=== PATIENT | male | born 1985 | race African-American/Black ===

== ENCOUNTER 2019-08-07 12:00 | Inpatient (IN) | payer MEDICARE, MEDICAID ==
[~2019-08-07] VITALS: Ht 182.9 cm; Wt 93.2 kg
[~2019-08-07 12:00] MED LIST: ALPR-340 PO; APIX5TAB PO; ASCO500 PO; BACL10TA PO; DOCU-275 PO; GABA-1216 PO; METO50 PO; MIRA50TA PO; MOM30 PO; ONDA-104 PO; OXYC-601 PO; POLY250020 PO; RINGERS SOLUTION,LACTATED 1,000 ML IV ONE; RIVA20TA PO; SENN1TAB86 PO
[2019-08-16] MEDS ORDERED: RINGERS SOLUTION,LACTATED 1,000 ML IV ONE ×2 (05:34→11:26)
[2019-08-16 06:42] LABS: BASOPHILS % (AUTO) 0.5 % (0.0-2.0); EOSINOPHILS % (AUTO) 4.8 % (1.0-6.0); HEMOGLOBIN 12.9 g/dL (13.5-17.5); LYMPHOCYTES # (AUTO) 2.6 K/uL (1.0-4.8); LYMPHOCYTES % (AUTO) 39.9 % (22.0-44.0); MEAN CORPUSCULAR HGB CONC 32.2 G/dL (31.0-37.0); MEAN CORPUSCULAR VOLUME 77 fL (80-100); MONOCYTES # (AUTO) 0.4 K/uL (0.1-1.0); MONOCYTES % (AUTO) 5.5 % (2.0-9.0); NEUTROPHILS # (AUTO) 3.2 K/uL (1.8-7.7); NEUTROPHILS % (AUTO) 49.3 % (40.0-70.0); PLATELET COUNT (AUTO) 310 K/uL (150-450); RED BLOOD CELL COUNT(AUTO) 5.17 MIL/uL (4.50-5.90); RED CELL DISTRIBUTION WIDTH 17.7 % (11.5-14.5)
[2019-08-16 06:48] LABS: ANION GAP 7 mmol/L (8-16); CALCIUM, TOTAL 9.2 mg/dL (8.8-10.5); CARBON DIOXIDE 29 mmol/L (22-29); CHLORIDE 103 mmol/L (98-107); CREATININE 0.62 mg/dL (0.60-1.30); GLOMERULAR FILTR. RATE CALC > 60 mL/min (>60); GLUCOSE,RANDOM 99 mg/dL (70-110); POTASSIUM 3.9 mmol/L (3.5-5.1); SODIUM SERUM 139 mmol/L (136-145); UREA NITROGEN, BLOOD 16 mg/dL (7-18)
[2019-08-16 06:55] LABS: INR 1.1 (0.9-1.1); PROTHROMBIN TIME 10.9 SEC (9.4-11.6)
[2019-08-16] MEDS ORDERED: BACITRACIN 50,000 UNITS/VIAL ONE (06:57)
[2019-08-16] MEDS ORDERED: SODIUM CL IRRIG SOLN BAG 0 ML IRRIG ONE (06:57)
[2019-08-16] MEDS ORDERED: ACETAMINOPHEN 1000 MG/ISO-OSM 100 ML IV ONE (07:02)
[2019-08-16] MEDS: ACETAMINOPHEN 1000 MG/ISO-OSM 100 ML IV SCH ×3 (07:10→18:11)
[2019-08-16] MEDS ORDERED: CLINDAMYCIN PHOS 150 MG/ML 4 ML VIAL ONE (07:14)
[2019-08-16] MEDS ORDERED: MERO1VIA22 IV (07:17)
[2019-08-16] MEDS ORDERED: HYDROmorphone 2 MG/ML SYRINGE IVP PRN (07:30)
[2019-08-16] MEDS ORDERED: MEPERIDINE-PF 25 MG/ML VIAL IVP PRN (07:30)
[2019-08-16] MEDS: OXYGEN THERAPY IH SCH (08:00)
[2019-08-16] MEDS ORDERED: LIDOCAINE 1%/EPI 1:200,000/PF 30 ML VIAL ONE ×2 (08:17)
[2019-08-16] MEDS ORDERED: FentaNYL CITRATE-PF 100 MCG/2 ML VIAL ONE ×2 (11:18→11:34)
[2019-08-16] MEDS: FentaNYL CITRATE-PF 100 MCG/2 ML VIAL IVP PRN ×4 (11:19→11:31)
[2019-08-16] MEDS ORDERED: ETOMIDATE 2 MG/ML 10 ML VIAL IVP ONE (12:00)
[2019-08-16] MEDS ORDERED: OxyCODONE HCL/ACETAMINOPHEN 10-325 MG TABLET PO SCH (12:00)
[2019-08-16] MEDS ORDERED: METOPROLOL TARTRATE 50 MG TABLET PO SCH (12:00)
[2019-08-16] MEDS ORDERED: ONDANSETRON HCL 4 MG TABLET PO SCH (12:00)
[2019-08-16] MEDS ORDERED: FentaNYL CITRATE-PF 100 MCG/2 ML VIAL IVP ONE (12:00)
[2019-08-16] MEDS ORDERED: SUCCINYLCHOLINE CHLORIDE 20 MG/ML 10 ML VIAL IVP ONE (12:00)
[2019-08-16] MEDS ORDERED: MIDAZOLAM HCL 2 MG/2 ML VIAL IVP ONE (12:00)
[2019-08-16] MEDS ORDERED: DEXAMETHASONE SOD PHOS 4 MG/ML VIAL IVP ONE (12:00)
[2019-08-16] MEDS ORDERED: PROPOFOL 1% 20 ML VIAL IVP ONE (12:00)
[2019-08-16] MEDS ORDERED: DOCUSATE SODIUM 100 MG CAPSULE PO PRN (12:00)
[2019-08-16] MEDS ORDERED: ONDANSETRON HCL 4 MG/2 ML VIAL IVP ONE (12:00)
[2019-08-16] MEDS ORDERED: SODIUM CHLORIDE 0.9% 500 ML IV ONE (12:51)
[2019-08-16] MEDS: ASCORBIC ACID 500 MG TABLET PO SCH ×2 (13:09→20:15)
[2019-08-16] MEDS: MAGNESIUM HYDROXIDE SUSPENSION 30 ML UDCUP PO SCH (13:10)
[2019-08-16 13:13] VITALS: BP 123/82
[2019-08-16] MEDS ORDERED: ACETAMINOPHEN 325 MG TABLET PO PRN (13:30)
[2019-08-16] MEDS ORDERED: ONDANSETRON HCL 4 MG/2 ML VIAL IVP PRN (13:30)
[2019-08-16] MEDS ORDERED: MAGNESIUM HYDROXIDE SUSPENSION 30 ML UDCUP PO PRN (13:30)
[2019-08-16] MEDS ORDERED: HydrALAZINE HCL 20 MG/ML VIAL IVP PRN (13:45)
[2019-08-16] MEDS: CeFAZolin 2 GM/DEXTROSE 50 ML IV SCH ×2 (15:36→23:27)
[2019-08-16] MEDS: HEPARIN SODIUM,PORCINE 5,000 UNITS/ML VIAL SQ SCH ×2 (16:52→23:26)
[2019-08-16] MEDS: HYDROmorphone 2 MG/ML SYRINGE IVP PRN ×2 (16:52→23:34)
[2019-08-16] MEDS: BACLOFEN 10 MG TABLET PO SCH ×2 (16:52→20:14)
[2019-08-16] MEDS: GABAPENTIN 100 MG CAPSULE PO SCH ×2 (16:52→20:14)
[2019-08-16] MEDS: OxyCODONE HCL/ACETAMINOPHEN 10-325 MG TABLET PO SCH (18:11)
[2019-08-16 19:14] LABS: APPEARANCE,URINE CLEAR (CLEAR); BILIRUBIN,URINE NEGATIVE (NEGATIVE); GLUCOSE, URINE (UA) NEGATIVE (NEGATIVE); KETONES,URINE NEGATIVE (NEGATIVE); LEUKOCYTE ESTERASE ,URINE SMALL (NEGATIVE); NITRATE,URINE NEGATIVE (NEGATIVE); OCCULT BLOOD,URINE NEGATIVE (NEGATIVE); PROTEIN,URINE NEGATIVE (NEGATIVE); UROBILINOGEN,URINE 0.2 mg/dL (<=1.0)
[2019-08-16 19:46] LABS: BACTERIA,URINE Rare /HPF (None Seen); RBC,URINE None Seen /HPF (0-2)
[2019-08-16 19:47] LABS: CALCIUM OXALATE CRYSTALS,UR Rare /LPF (None Seen); SQUAMOUS EPITHELIAL CELL,UR Rare /LPF (None Seen); YEAST,URINE Moderate /HPF (None Seen)
[2019-08-16 19:56] VITALS: BP 116/68
[2019-08-16] MEDS: DOCUSATE SODIUM 100 MG CAPSULE PO SCH (20:14)
[2019-08-16] MEDS: SENNA/DOCUSATE SODIUM 8.6-50 MG TABLET PO SCH (20:14)
[2019-08-16] MEDS: METOPROLOL TARTRATE 25 MG TABLET PO SCH (20:15)
[2019-08-16 23:30] VITALS: BP 118/74
[2019-08-17] MEDS: ACETAMINOPHEN 1000 MG/ISO-OSM 100 ML IV SCH (01:15)
[2019-08-17 05:00] VITALS: BP 103/57
[2019-08-17] MEDS: MORPHINE SULFATE 2 MG/ML SYRINGE IVP PRN ×3 (05:17→18:10)
[2019-08-17] MEDS: OxyCODONE HCL/ACETAMINOPHEN 10-325 MG TABLET PO SCH ×4 (07:22→20:46)
[2019-08-17] MEDS: OXYGEN THERAPY IH SCH ×2 (07:34→20:49)
[2019-08-17 07:54] VITALS: BP 118/62
[2019-08-17] MEDS: METOPROLOL TARTRATE 25 MG TABLET PO SCH ×2 (08:45→20:47)
[2019-08-17] MEDS: GABAPENTIN 100 MG CAPSULE PO SCH ×3 (08:45→20:48)
[2019-08-17] MEDS: ASCORBIC ACID 500 MG TABLET PO SCH ×2 (08:45→20:46)
[2019-08-17] MEDS: DOCUSATE SODIUM 100 MG CAPSULE PO SCH ×2 (08:45→20:47)
[2019-08-17] MEDS: MAGNESIUM HYDROXIDE SUSPENSION 30 ML UDCUP PO SCH (08:45)
[2019-08-17] MEDS: FAMOTIDINE 20 MG TABLET PO SCH (08:46)
[2019-08-17] MEDS: HEPARIN SODIUM,PORCINE 5,000 UNITS/ML VIAL SQ SCH ×2 (08:46→16:28)
[2019-08-17] MEDS: BACLOFEN 10 MG TABLET PO SCH ×3 (08:46→20:47)
[2019-08-17 08:49] LABS: BASOPHILS % (AUTO) 0.2 % (0.0-2.0); HEMATOCRIT 31.5 % (41-53); HEMOGLOBIN 10.5 g/dL (13.5-17.5); LYMPHOCYTES # (AUTO) 3.4 K/uL (1.0-4.8); LYMPHOCYTES % (AUTO) 37.5 % (22.0-44.0); MEAN CORPUSCULAR HEMOGLOBIN 25.8 pg (26.0-34.0); MEAN CORPUSCULAR HGB CONC 33.2 G/dL (31.0-37.0); MEAN CORPUSCULAR VOLUME 78 fL (80-100); MONOCYTES # (AUTO) 0.6 K/uL (0.1-1.0); MONOCYTES % (AUTO) 6.2 % (2.0-9.0); NEUTROPHILS % (AUTO) 55.1 % (40.0-70.0); PLATELET COUNT (AUTO) 255 K/uL (150-450); RED BLOOD CELL COUNT(AUTO) 4.07 MIL/uL (4.50-5.90); RED CELL DISTRIBUTION WIDTH 18.3 % (11.5-14.5)
[2019-08-17 09:09] LABS: ANION GAP 7 mmol/L (8-16); CALCIUM, TOTAL 8.6 mg/dL (8.8-10.5); CARBON DIOXIDE 29 mmol/L (22-29); CHLORIDE 104 mmol/L (98-107); CREATININE 0.32 mg/dL (0.60-1.30); GLOMERULAR FILTR. RATE CALC > 60 mL/min (>60); GLUCOSE,RANDOM 108 mg/dL (70-110); SODIUM SERUM 140 mmol/L (136-145); UREA NITROGEN, BLOOD 14 mg/dL (7-18)
[2019-08-17 11:17] VITALS: BP 99/61
[2019-08-17 15:30] VITALS: BP 100/59
[2019-08-17 19:26] VITALS: BP 127/78
[2019-08-17] MEDS: SENNA/DOCUSATE SODIUM 8.6-50 MG TABLET PO SCH (20:47)
[2019-08-17 23:55] VITALS: BP 104/56
[2019-08-18] MEDS: HEPARIN SODIUM,PORCINE 5,000 UNITS/ML VIAL SQ SCH ×3 (00:04→16:24)
[2019-08-18] MEDS: ALPRAZolam 0.5 MG TABLET PO PRN (00:07)
[2019-08-18] MEDS: HYDROmorphone 2 MG/ML SYRINGE IVP PRN ×2 (00:13→08:35)
[2019-08-18] MEDS: OxyCODONE HCL/ACETAMINOPHEN 10-325 MG TABLET PO SCH ×4 (02:45→17:52)
[2019-08-18] MEDS: MORPHINE SULFATE 2 MG/ML SYRINGE IVP PRN ×4 (03:22→22:52)
[2019-08-18 04:23] VITALS: BP 127/70
[2019-08-18 07:31] LABS: BASOPHILS % (AUTO) 0.4 % (0.0-2.0); EOSINOPHILS % (AUTO) 1.7 % (1.0-6.0); HEMATOCRIT 29.6 % (41-53); LYMPHOCYTES # (AUTO) 3.3 K/uL (1.0-4.8); LYMPHOCYTES % (AUTO) 34.1 % (22.0-44.0); MEAN CORPUSCULAR HEMOGLOBIN 26.2 pg (26.0-34.0); MEAN CORPUSCULAR HGB CONC 33.7 G/dL (31.0-37.0); MEAN CORPUSCULAR VOLUME 78 fL (80-100); MONOCYTES # (AUTO) 0.6 K/uL (0.1-1.0); MONOCYTES % (AUTO) 6.4 % (2.0-9.0); NEUTROPHILS # (AUTO) 5.5 K/uL (1.8-7.7); NEUTROPHILS % (AUTO) 57.4 % (40.0-70.0); PLATELET COUNT (AUTO) 252 K/uL (150-450); RED BLOOD CELL COUNT(AUTO) 3.82 MIL/uL (4.50-5.90); RED CELL DISTRIBUTION WIDTH 18.8 % (11.5-14.5)
[2019-08-18 07:38] LABS: ANION GAP 9 mmol/L (8-16); CALCIUM, TOTAL 8.7 mg/dL (8.8-10.5); CARBON DIOXIDE 26 mmol/L (22-29); CHLORIDE 100 mmol/L (98-107); CREATININE 0.56 mg/dL (0.60-1.30); GLOMERULAR FILTR. RATE CALC > 60 mL/min (>60); GLUCOSE,RANDOM 95 mg/dL (70-110); POTASSIUM 3.7 mmol/L (3.5-5.1); SODIUM SERUM 135 mmol/L (136-145); UREA NITROGEN, BLOOD 15 mg/dL (7-18)
[2019-08-18 07:58] VITALS: BP 102/54
[2019-08-18] MEDS: OXYGEN THERAPY IH SCH ×2 (08:00→20:47)
[2019-08-18] MEDS: DOCUSATE SODIUM 100 MG CAPSULE PO SCH ×2 (08:29→20:44)
[2019-08-18] MEDS: METOPROLOL TARTRATE 25 MG TABLET PO SCH ×2 (08:30→20:46)
[2019-08-18] MEDS: MAGNESIUM HYDROXIDE SUSPENSION 30 ML UDCUP PO SCH (08:30)
[2019-08-18] MEDS: BACLOFEN 10 MG TABLET PO SCH ×3 (08:30→20:44)
[2019-08-18] MEDS: GABAPENTIN 100 MG CAPSULE PO SCH ×3 (08:31→20:44)
[2019-08-18] MEDS: FAMOTIDINE 20 MG TABLET PO SCH (08:31)
[2019-08-18] MEDS: ASCORBIC ACID 500 MG TABLET PO SCH ×2 (08:31→20:44)
[2019-08-18] MEDS ORDERED: ALPR-340 PO (10:23)
[2019-08-18] MEDS ORDERED: HEPA500018 SQ (10:26)
[2019-08-18 11:30] VITALS: BP 124/61
[2019-08-18] MEDS ORDERED: MEROPENEM 1 GM in SODIUM CHLORIDE 0.9% 100 ML IV SCH (12:00)
[2019-08-18 15:07] VITALS: BP 109/62
[2019-08-18 20:30] VITALS: BP 105/60
[2019-08-18] MEDS: SENNA/DOCUSATE SODIUM 8.6-50 MG TABLET PO SCH (20:44)
[2019-08-19] VITALS (7 sets, daily range): BP systolic 95–127; BP diastolic 52–75
[2019-08-19] MEDS: OxyCODONE HCL/ACETAMINOPHEN 10-325 MG TABLET PO SCH ×5 (00:19→23:53)
[2019-08-19] MEDS: HEPARIN SODIUM,PORCINE 5,000 UNITS/ML VIAL SQ SCH ×4 (00:22→23:53)
[2019-08-19] MEDS: ALPRAZolam 0.5 MG TABLET PO PRN (01:50)
[2019-08-19] MEDS: MORPHINE SULFATE 2 MG/ML SYRINGE IVP PRN ×2 (05:16→10:52)
[2019-08-19] MEDS: FAMOTIDINE 20 MG TABLET PO SCH (07:59)
[2019-08-19] MEDS: METOPROLOL TARTRATE 25 MG TABLET PO SCH ×2 (07:59→20:57)
[2019-08-19] MEDS: DOCUSATE SODIUM 100 MG CAPSULE PO SCH ×2 (07:59→20:59)
[2019-08-19] MEDS: ASCORBIC ACID 500 MG TABLET PO SCH ×2 (07:59→20:59)
[2019-08-19] MEDS: BACLOFEN 10 MG TABLET PO SCH ×3 (07:59→20:57)
[2019-08-19] MEDS: GABAPENTIN 100 MG CAPSULE PO SCH ×3 (07:59→20:56)
[2019-08-19] MEDS: OXYGEN THERAPY IH SCH ×2 (08:00→20:59)
[2019-08-19] MEDS: MAGNESIUM HYDROXIDE SUSPENSION 30 ML UDCUP PO SCH (08:00)
[2019-08-19] MEDS: SENNA/DOCUSATE SODIUM 8.6-50 MG TABLET PO SCH (21:04)
[2019-08-19] MEDS: HYDROmorphone 2 MG/ML SYRINGE IVP PRN (22:16)
[2019-08-20] MEDS: ALPRAZolam 0.5 MG TABLET PO PRN ×2 (03:09→20:58)
[2019-08-20 04:30] VITALS: BP 107/62
[2019-08-20] MEDS: OxyCODONE HCL/ACETAMINOPHEN 10-325 MG TABLET PO SCH ×4 (06:23→23:07)
[2019-08-20 07:25] LABS: BASOPHILS % (AUTO) 0.5 % (0.0-2.0); EOSINOPHILS % (AUTO) 2.5 % (1.0-6.0); HEMATOCRIT 28.7 % (41-53); HEMOGLOBIN 9.6 g/dL (13.5-17.5); LYMPHOCYTES # (AUTO) 2.4 K/uL (1.0-4.8); LYMPHOCYTES % (AUTO) 25.3 % (22.0-44.0); MEAN CORPUSCULAR HEMOGLOBIN 25.7 pg (26.0-34.0); MEAN CORPUSCULAR HGB CONC 33.5 G/dL (31.0-37.0); MEAN CORPUSCULAR VOLUME 77 fL (80-100); MONOCYTES # (AUTO) 0.7 K/uL (0.1-1.0); MONOCYTES % (AUTO) 6.8 % (2.0-9.0); NEUTROPHILS # (AUTO) 6.3 K/uL (1.8-7.7); NEUTROPHILS % (AUTO) 64.9 % (40.0-70.0); PLATELET COUNT (AUTO) 287 K/uL (150-450); RED BLOOD CELL COUNT(AUTO) 3.76 MIL/uL (4.50-5.90); RED CELL DISTRIBUTION WIDTH 18.2 % (11.5-14.5)
[2019-08-20 07:37] VITALS: BP 135/78
[2019-08-20 07:56] LABS: ANION GAP 8 mmol/L (8-16); CALCIUM, TOTAL 9.2 mg/dL (8.8-10.5); CARBON DIOXIDE 28 mmol/L (22-29); CHLORIDE 97 mmol/L (98-107); CREATININE 0.51 mg/dL (0.60-1.30); GLOMERULAR FILTR. RATE CALC > 60 mL/min (>60); GLUCOSE,RANDOM 108 mg/dL (70-110); SODIUM SERUM 133 mmol/L (136-145); UREA NITROGEN, BLOOD 12 mg/dL (7-18)
[2019-08-20] MEDS: OXYGEN THERAPY IH SCH (08:00)
[2019-08-20] MEDS: FAMOTIDINE 20 MG TABLET PO SCH (08:49)
[2019-08-20] MEDS: HYDROmorphone 2 MG/ML SYRINGE IVP PRN (08:52)
[2019-08-20] MEDS: ASCORBIC ACID 500 MG TABLET PO SCH ×2 (08:54→20:58)
[2019-08-20] MEDS: MAGNESIUM HYDROXIDE SUSPENSION 30 ML UDCUP PO SCH (08:54)
[2019-08-20] MEDS: DOCUSATE SODIUM 100 MG CAPSULE PO SCH ×2 (08:54→20:56)
[2019-08-20] MEDS: HEPARIN SODIUM,PORCINE 5,000 UNITS/ML VIAL SQ SCH ×2 (08:55→15:48)
[2019-08-20] MEDS: BACLOFEN 10 MG TABLET PO SCH ×3 (08:55→20:56)
[2019-08-20] MEDS: GABAPENTIN 100 MG CAPSULE PO SCH ×3 (08:55→20:57)
[2019-08-20] MEDS: METOPROLOL TARTRATE 25 MG TABLET PO SCH ×2 (08:55→20:57)
[2019-08-20] MEDS ORDERED: SODIUM CHLORIDE 0.9% 500 ML IV ONE (10:17)
[2019-08-20] MEDS: DOXYCYCLINE HYCLATE 100 MG in DEXTROSE 5%-WATER 100 ML IV SCH ×2 (10:27→23:05)
[2019-08-20 11:31] VITALS: BP 119/77
[2019-08-20 15:40] VITALS: BP 105/59
[2019-08-20] MEDS: MORPHINE SULFATE 2 MG/ML SYRINGE IVP PRN (15:42)
[2019-08-20 20:01] VITALS: BP 125/63
[2019-08-20] MEDS: SENNA/DOCUSATE SODIUM 8.6-50 MG TABLET PO SCH (20:58)
[2019-08-21] VITALS (7 sets, daily range): BP systolic 90–141; BP diastolic 53–79
[2019-08-21] MEDS: HEPARIN SODIUM,PORCINE 5,000 UNITS/ML VIAL SQ SCH ×4 (00:18→23:28)
[2019-08-21] MEDS: HYDROmorphone 2 MG/ML SYRINGE IVP PRN (02:33)
[2019-08-21] MEDS: OxyCODONE HCL/ACETAMINOPHEN 10-325 MG TABLET PO SCH ×4 (06:23→23:27)
[2019-08-21] MEDS: OXYGEN THERAPY IH SCH (08:00)
[2019-08-21] MEDS: FAMOTIDINE 20 MG TABLET PO SCH (08:43)
[2019-08-21] MEDS: BACLOFEN 10 MG TABLET PO SCH ×3 (08:44→20:36)
[2019-08-21] MEDS: MAGNESIUM HYDROXIDE SUSPENSION 30 ML UDCUP PO SCH (08:44)
[2019-08-21] MEDS: GABAPENTIN 100 MG CAPSULE PO SCH ×3 (08:44→20:36)
[2019-08-21] MEDS: DOCUSATE SODIUM 100 MG CAPSULE PO SCH ×2 (08:44→20:36)
[2019-08-21] MEDS: ASCORBIC ACID 500 MG TABLET PO SCH ×2 (08:45→20:36)
[2019-08-21] MEDS: METOPROLOL TARTRATE 25 MG TABLET PO SCH ×2 (08:46→20:35)
[2019-08-21] MEDS: MORPHINE SULFATE 2 MG/ML SYRINGE IVP PRN ×3 (10:59→22:26)
[2019-08-21] MEDS: DOXYCYCLINE HYCLATE 100 MG in DEXTROSE 5%-WATER 100 ML IV SCH ×2 (10:59→22:27)
[2019-08-21] MEDS: SENNA/DOCUSATE SODIUM 8.6-50 MG TABLET PO SCH (20:36)
[2019-08-22] MEDS: ALPRAZolam 0.5 MG TABLET PO PRN ×2 (02:13→20:25)
[2019-08-22 04:37] VITALS: BP 112/57
[2019-08-22] MEDS: MORPHINE SULFATE 2 MG/ML SYRINGE IVP PRN (04:51)
[2019-08-22] MEDS: OxyCODONE HCL/ACETAMINOPHEN 10-325 MG TABLET PO SCH ×4 (06:04→23:32)
[2019-08-22 07:23] VITALS: BP 104/60
[2019-08-22] MEDS: OXYGEN THERAPY IH SCH (08:00)
[2019-08-22] MEDS: HEPARIN SODIUM,PORCINE 5,000 UNITS/ML VIAL SQ SCH ×3 (08:33→23:32)
[2019-08-22] MEDS: MAGNESIUM HYDROXIDE SUSPENSION 30 ML UDCUP PO SCH (08:33)
[2019-08-22] MEDS: FAMOTIDINE 20 MG TABLET PO SCH (08:34)
[2019-08-22] MEDS: METOPROLOL TARTRATE 25 MG TABLET PO SCH ×3 (08:35→20:22)
[2019-08-22] MEDS: BACLOFEN 10 MG TABLET PO SCH ×3 (08:35→20:18)
[2019-08-22] MEDS: ASCORBIC ACID 500 MG TABLET PO SCH ×2 (08:35→20:18)
[2019-08-22] MEDS: GABAPENTIN 100 MG CAPSULE PO SCH ×3 (08:35→20:18)
[2019-08-22] MEDS: DOCUSATE SODIUM 100 MG CAPSULE PO SCH ×2 (08:35→20:18)
[2019-08-22] MEDS: HYDROmorphone 2 MG/ML SYRINGE IVP PRN ×2 (08:38→15:44)
[2019-08-22] MEDS: DOXYCYCLINE HYCLATE 100 MG in DEXTROSE 5%-WATER 100 ML IV SCH ×2 (10:43→23:32)
[2019-08-22 15:01] VITALS: BP 123/61
[2019-08-22] MEDS: SENNA/DOCUSATE SODIUM 8.6-50 MG TABLET PO SCH (20:17)
[2019-08-22 20:23] VITALS: BP 93/48
[2019-08-22 23:33] VITALS: BP 126/70
[2019-08-23] MEDS: MORPHINE SULFATE 2 MG/ML SYRINGE IVP PRN ×3 (02:33→22:34)
[2019-08-23 05:16] VITALS: BP 105/63
[2019-08-23] MEDS: OxyCODONE HCL/ACETAMINOPHEN 10-325 MG TABLET PO SCH ×3 (05:23→18:20)
[2019-08-23] MEDS: OXYGEN THERAPY IH SCH (08:00)
[2019-08-23 08:14] VITALS: BP 104/64
[2019-08-23] MEDS: GABAPENTIN 100 MG CAPSULE PO SCH ×3 (08:49→21:10)
[2019-08-23] MEDS: MAGNESIUM HYDROXIDE SUSPENSION 30 ML UDCUP PO SCH (08:49)
[2019-08-23] MEDS: ASCORBIC ACID 500 MG TABLET PO SCH ×2 (08:49→21:10)
[2019-08-23] MEDS: FAMOTIDINE 20 MG TABLET PO SCH (08:50)
[2019-08-23] MEDS: HEPARIN SODIUM,PORCINE 5,000 UNITS/ML VIAL SQ SCH ×2 (08:50→16:00)
[2019-08-23] MEDS: BACLOFEN 10 MG TABLET PO SCH ×3 (08:50→21:10)
[2019-08-23] MEDS: DOCUSATE SODIUM 100 MG CAPSULE PO SCH ×2 (08:50→21:10)
[2019-08-23] MEDS: METOPROLOL TARTRATE 25 MG TABLET PO SCH ×2 (08:51→21:10)
[2019-08-23 11:21] VITALS: BP 106/68
[2019-08-23] MEDS: DOXYCYCLINE HYCLATE 100 MG in DEXTROSE 5%-WATER 100 ML IV SCH ×2 (11:33→21:53)
[2019-08-23] MEDS ORDERED: IOHEXOL 240 MG/ML 50 ML VIAL ONE (14:10)
[2019-08-23 15:25] VITALS: BP 108/62
[2019-08-23 18:35] LABS: BASOPHILS % (AUTO) 0.8 % (0.0-2.0); EOSINOPHILS % (AUTO) 3.7 % (1.0-6.0); HEMATOCRIT 29.9 % (41-53); HEMOGLOBIN 9.9 g/dL (13.5-17.5); LYMPHOCYTES % (AUTO) 31.9 % (22.0-44.0); MEAN CORPUSCULAR HEMOGLOBIN 25.2 pg (26.0-34.0); MEAN CORPUSCULAR HGB CONC 32.9 G/dL (31.0-37.0); MEAN CORPUSCULAR VOLUME 77 fL (80-100); MONOCYTES # (AUTO) 0.6 K/uL (0.1-1.0); MONOCYTES % (AUTO) 6.5 % (2.0-9.0); NEUTROPHILS # (AUTO) 5.3 K/uL (1.8-7.7); NEUTROPHILS % (AUTO) 57.1 % (40.0-70.0); PLATELET COUNT (AUTO) 430 K/uL (150-450); RED BLOOD CELL COUNT(AUTO) 3.91 MIL/uL (4.50-5.90); RED CELL DISTRIBUTION WIDTH 17.6 % (11.5-14.5)
[2019-08-23 18:49] LABS: ANION GAP 5 mmol/L (8-16); CALCIUM, TOTAL 9.6 mg/dL (8.8-10.5); CARBON DIOXIDE 30 mmol/L (22-29); CHLORIDE 96 mmol/L (98-107); CREATININE 0.59 mg/dL (0.60-1.30); GLOMERULAR FILTR. RATE CALC > 60 mL/min (>60); GLUCOSE,RANDOM 127 mg/dL (70-110); SODIUM SERUM 131 mmol/L (136-145); UREA NITROGEN, BLOOD 21 mg/dL (7-18)
[2019-08-23] MEDS: SENNA/DOCUSATE SODIUM 8.6-50 MG TABLET PO SCH (21:10)
[2019-08-23 21:17] VITALS: BP 155/95
[2019-08-24] MEDS: OxyCODONE HCL/ACETAMINOPHEN 10-325 MG TABLET PO SCH ×4 (00:32→18:17)
[2019-08-24 00:38] VITALS: BP 124/71
[2019-08-24] MEDS: ALPRAZolam 0.5 MG TABLET PO PRN ×3 (02:45→10:11)
[2019-08-24] MEDS: MORPHINE SULFATE 2 MG/ML SYRINGE IVP PRN ×4 (05:36→21:16)
[2019-08-24 05:49] VITALS: BP 99/69
[2019-08-24] MEDS: OXYGEN THERAPY IH SCH (08:00)
[2019-08-24] MEDS: HEPARIN SODIUM,PORCINE 5,000 UNITS/ML VIAL SQ SCH ×3 (08:00→16:40)
[2019-08-24 08:50] VITALS: BP 121/69
[2019-08-24] MEDS: BACLOFEN 10 MG TABLET PO SCH ×3 (09:00→20:51)
[2019-08-24] MEDS: GABAPENTIN 100 MG CAPSULE PO SCH ×3 (09:00→20:51)
[2019-08-24] MEDS: METOPROLOL TARTRATE 25 MG TABLET PO SCH ×3 (09:00→20:51)
[2019-08-24] MEDS ORDERED: LIDOCAINE 2% 5 ML JELLY ONE (10:06)
[2019-08-24 12:17] VITALS: BP 104/73
[2019-08-24] MEDS: FAMOTIDINE 20 MG TABLET PO SCH (12:17)
[2019-08-24] MEDS: DOCUSATE SODIUM 100 MG CAPSULE PO SCH ×2 (12:17→20:51)
[2019-08-24] MEDS: MAGNESIUM HYDROXIDE SUSPENSION 30 ML UDCUP PO SCH (12:17)
[2019-08-24] MEDS: ASCORBIC ACID 500 MG TABLET PO SCH ×2 (12:17→22:17)
[2019-08-24] MEDS: DOXYCYCLINE HYCLATE 100 MG in DEXTROSE 5%-WATER 100 ML IV SCH ×2 (12:18→22:23)
[2019-08-24 13:56] LABS: APPEARANCE,URINE CLOUDY (CLEAR); BILIRUBIN,URINE NEGATIVE (NEGATIVE); GLUCOSE, URINE (UA) NEGATIVE (NEGATIVE); KETONES,URINE NEGATIVE (NEGATIVE); LEUKOCYTE ESTERASE ,URINE LARGE (NEGATIVE); NITRATE,URINE NEGATIVE (NEGATIVE); OCCULT BLOOD,URINE MODERATE (NEGATIVE); PH,URINE 8.5 (5.0-8.0); PROTEIN,URINE POS 1+ (NEGATIVE); UROBILINOGEN,URINE 0.2 mg/dL (<=1.0)
[2019-08-24 13:59] LABS: BACTERIA,URINE Moderate /HPF (None Seen)
[2019-08-24 20:45] VITALS: BP 134/92
[2019-08-24] MEDS: SENNA/DOCUSATE SODIUM 8.6-50 MG TABLET PO SCH (20:50)
[2019-08-24 23:46] VITALS: BP 127/76
[2019-08-25] MEDS: HEPARIN SODIUM,PORCINE 5,000 UNITS/ML VIAL SQ SCH ×4 (00:34→23:52)
[2019-08-25] MEDS: OxyCODONE HCL/ACETAMINOPHEN 10-325 MG TABLET PO SCH ×5 (00:34→23:45)
[2019-08-25] MEDS: MORPHINE SULFATE 2 MG/ML SYRINGE IVP PRN ×3 (02:50→18:02)
[2019-08-25 04:24] VITALS: BP 95/50
[2019-08-25 08:00] VITALS: BP 106/69
[2019-08-25] MEDS: OXYGEN THERAPY IH SCH ×3 (08:00→20:00)
[2019-08-25] MEDS: DOCUSATE SODIUM 100 MG CAPSULE PO SCH ×2 (08:39→23:51)
[2019-08-25] MEDS: FAMOTIDINE 20 MG TABLET PO SCH (08:40)
[2019-08-25] MEDS: BACLOFEN 10 MG TABLET PO SCH ×3 (08:40→23:51)
[2019-08-25] MEDS: ASCORBIC ACID 500 MG TABLET PO SCH ×2 (08:40→23:51)
[2019-08-25] MEDS: GABAPENTIN 100 MG CAPSULE PO SCH ×3 (08:43→23:51)
[2019-08-25] MEDS: DOXYCYCLINE HYCLATE 100 MG in DEXTROSE 5%-WATER 100 ML IV SCH ×2 (08:55→23:50)
[2019-08-25] MEDS: MAGNESIUM HYDROXIDE SUSPENSION 30 ML UDCUP PO SCH (11:03)
[2019-08-25] MEDS ORDERED: SODIUM CHLORIDE 0.9% 500 ML IV ONE (11:21)
[2019-08-25 11:42] VITALS: BP 108/71
[2019-08-25 16:40] VITALS: BP 149/100
[2019-08-25 20:04] VITALS: BP 120/90
[2019-08-25] MEDS: HYDROmorphone 2 MG/ML SYRINGE IVP PRN (20:11)
[2019-08-25 23:50] VITALS: BP 121/62
[2019-08-25] MEDS: SENNA/DOCUSATE SODIUM 8.6-50 MG TABLET PO SCH (23:51)
[2019-08-26 04:13] VITALS: BP 134/86
[2019-08-26] MEDS: MORPHINE SULFATE 2 MG/ML SYRINGE IVP PRN ×2 (04:25→09:15)
[2019-08-26] MEDS: OxyCODONE HCL/ACETAMINOPHEN 10-325 MG TABLET PO SCH ×2 (06:34→11:58)
[2019-08-26 08:00] VITALS: BP 131/77
[2019-08-26] MEDS: OXYGEN THERAPY IH SCH (08:00)
[2019-08-26] MEDS: MAGNESIUM HYDROXIDE SUSPENSION 30 ML UDCUP PO SCH (09:08)
[2019-08-26] MEDS: GABAPENTIN 100 MG CAPSULE PO SCH (09:08)
[2019-08-26] MEDS: ASCORBIC ACID 500 MG TABLET PO SCH (09:08)
[2019-08-26] MEDS: DOCUSATE SODIUM 100 MG CAPSULE PO SCH (09:08)
[2019-08-26] MEDS: FAMOTIDINE 20 MG TABLET PO SCH (09:08)
[2019-08-26] MEDS: HEPARIN SODIUM,PORCINE 5,000 UNITS/ML VIAL SQ SCH (09:09)
[2019-08-26] MEDS: BACLOFEN 10 MG TABLET PO SCH (09:09)
[2019-08-26] MEDS: DOXYCYCLINE HYCLATE 100 MG in DEXTROSE 5%-WATER 100 ML IV SCH (10:14)
[2019-08-26] MEDS ORDERED: FAMO20 PO (14:34)
[2019-08-26] MEDS ORDERED: DOXY-354 PO (14:35)
[2019-08-26] MEDS ORDERED: DOXY100I IV ×2 (14:37→14:38)
== END 2019-08-26 12:30 | DRG 579 ==
LOC: 4E 08-16 05:34
PROVIDERS: ADMIT Surgery Plastic and Reconstructive Surgery; ATTEND Surgery Plastic and Reconstructive Surgery
PROC: 0QB10ZZ Excision of Sacrum, Open Approach (ICD-10-PCS; 2019-08-16)
PROC: 0QB20ZZ Excision of Right Pelvic Bone, Open Approach (ICD-10-PCS; 2019-08-16)
PROC: 0WU Anatomical Regions, General, Supplement (ICD-10-PCS; principal; 2019-08-16 07:30)
PROC: 0T9B30Z Drainage of Bladder with Drainage Device, Percutaneous Approach (ICD-10-PCS; 2019-08-24)
DX: L89.44 Pressure ulcer of contiguous site of back, buttock and hip, stage 4 (principal); G82.50 Quadriplegia, unspecified; M86.9 Osteomyelitis, unspecified; N31.9 Neuromuscular dysfunction of bladder, unspecified; I95.9 Hypotension, unspecified; F41.1 Generalized anxiety disorder; Z88.0 Allergy status to penicillin; Z88.8 Allergy status to other drugs, medicaments and biological substances; Z79.899 Other long term (current) drug therapy; Z79.01 Long term (current) use of anticoagulants; Z79.1 Long term (current) use of non-steroidal anti-inflammatories (NSAID); Z79.891 Long term (current) use of opiate analgesic; Z79.2 Long term (current) use of antibiotics; Z03.818 Encounter for observation for suspected exposure to other biological agents ruled out
CPT/HCPCS: 75984; 76000; 87070; 87081; 87086; 87205; 88307; 88311; G0378; J0131; J0330; J0690; J1100; J1170; J1644; J2185; J2250; J2270; J2405; J2704; J3010; J3490; J7040; J7050; J7060; J7120; Q9966